=== PATIENT | male | born 1970 | race Caucasian/White ===

== ENCOUNTER 2022-08-12 16:01 | Inpatient (IN) | payer BC ==
[~2022-08-12] VITALS: Ht 185.4 cm; Wt 136.1 kg
[2022-08-12] MEDS ORDERED: Vancomycin IV 1 GM in SODIUM CHLORIDE 0.9% 250ML 250 ML IV SCH (16:15)
[2022-08-12 17:05] LABS: BASOPHILS % 0.2 % (0.0-1.0); HEMATOCRIT 43.1 % (38.2-49.6); HEMOGLOBIN 13.9 g/dL (14.0-18.0); LYMPHOCYTES # (AUTO) 0.7 (1.0-3.2); LYMPHOCYTES % 5.3 % (18.0-39.1); MEAN CORPUSCULAR HEMOGLOBIN 32.3 pg (28-32); MEAN CORPUSCULAR HGB CONC 32.3 g/dL (31-35); MONOCYTES # (AUTO) 0.8 (0.2-0.8); MONOCYTES % 6.5 % (4.4-11.3); NEUTROPHILS # (AUTO) 10.7 (2.1-6.9); NEUTROPHILS % 85.9 % (38.7-80.0); PLATELET COUNT 256 x10e3/uL (140-360); RED BLOOD COUNT 4.31 x10e6/uL (4.3-5.7); RED CELL DISTRIBUTION WIDTH 12.6 % (11.7-14.4)
[2022-08-12 17:24] LABS: ALBUMIN 2.6 g/dL (3.5-5.0); ALBUMIN/GLOBULIN RATIO 0.6 (0.8-2.0); ANION GAP 16.7 mmol/L (8-16); CALCIUM 9.1 mg/dL (8.4-10.2); CREATININE, SERUM 1.37 mg/dL (0.72-1.25); POTASSIUM 4.7 mmol/L (3.5-5.1)
[2022-08-12] MEDS ORDERED: SODIUM CHLORIDE 0.9% 1000ML 1,000 ML IV ONE (18:15)
[2022-08-12 20:00] VITALS: BP 98/74
[2022-08-12 20:34] VITALS: BP 109/56
[2022-08-12] MEDS ORDERED: INFLUENZA VIRUS VAC SPLIT INJ 0.5 ML SYR IM SCH (22:40)
[2022-08-13] VITALS (7 sets, daily range): BP systolic 108–135; BP diastolic 50–92
[2022-08-13] MEDS ORDERED: METFORMIN HCL500 MG PO (00:31)
[2022-08-13] MEDS ORDERED: FLOMAX0.4 MG PO (00:34)
[2022-08-13] MEDS ORDERED: LISINOPRIL2.5 MG PO (00:34)
[2022-08-13] MEDS ORDERED: POTASSIUM CHLORIDE 20 MEQ TAB CR PO PRN (01:15)
[2022-08-13] MEDS ORDERED: ONDANSETRON HCL INJ 2MG/ML 2ML 2 MG/ML VIAL IV PRN (01:15)
[2022-08-13] MEDS ORDERED: DEXTROSE 50% SYRINGE 50 ML IV PRN ×2 (01:15→13:30)
[2022-08-13] MEDS ORDERED: DIPHENHYDRAMINE HCL 25 MG CAP PO PRN (01:15)
[2022-08-13] MEDS ORDERED: SIMETHICONE 80 MG CHEW PO PRN (01:15)
[2022-08-13] MEDS ORDERED: MELATONIN 5 MG TABLET PO PRN (01:15)
[2022-08-13] MEDS ORDERED: ACETAMINOPHEN 325 MG TAB PO PRN (01:15)
[2022-08-13] MEDS ORDERED: DOCUSATE SODIUM 100 MG CAP PO PRN (01:15)
[2022-08-13] MEDS ORDERED: LIDOCAINE 4% PATCH TP PRN (01:15)
[2022-08-13] MEDS ORDERED: HYDRALAZINE HCL 20 MG/ML VIAL IV PRN (01:15)
[2022-08-13] MEDS ORDERED: ALBUTEROL/IPRATROPIUM 3 ML NEB NEB PRN (01:15)
[2022-08-13] MEDS ORDERED: BENZONATATE 100 MG CAP PO PRN (01:15)
[2022-08-13] MEDS ORDERED: SODIUM CHLORIDE 0.9% 250ML 250 ML ONE (01:59)
[2022-08-13] MEDS: Vancomycin IV 1 GM in SODIUM CHLORIDE 0.9% 250ML 250 ML IV SCH ×2 (05:36→16:57)
[2022-08-13] MEDS: TAMSULOSIN HCL 0.4 MG CAP PO SCH (09:14)
[2022-08-13] MEDS: PANTOPRAZOLE SOD 40 MG TABEC PO SCH (09:14)
[2022-08-13] MEDS: ENOXAPARIN SOD INJ 120 MG/0.8 ML SYR SC SCH ×2 (11:45→21:17)
[2022-08-13] MEDS: FOLIC ACID 1 MG TAB PO SCH (11:46)
[2022-08-13] MEDS: ASPIRIN 81 MG ENTERIC COATED PO SCH (11:46)
[2022-08-13] MEDS: MULTIVITAMINS/MINERALS TAB PO SCH (11:49)
[2022-08-13] MEDS: THIAMINE HCL 100 MG TAB PO SCH (11:49)
[2022-08-13 12:59] LABS: CHOL/HDL RATIO 4.8 (3.9-4.7)
[2022-08-13 14:37] LABS: CLARITY,URINE SL CLOUDY (CLEAR); COLOR,URINE YELLOW (YELLOW); KETONES,URINE TRACE (NEGATIVE); LEUKOCYTE ESTERASE ,URINE NEGATIVE (NEGATIVE); NITRITE,URINE NEGATIVE (NEGATIVE); PROTEIN,URINE DIPSTICK 1+ (NEGATIVE)
[2022-08-13 14:38] LABS: URINE UROBILINOGEN >=8 mg/dL (0.2 - 1)
[2022-08-13 15:04] LABS: BACTERIA,URINE MODERATE /HPF; EPITHELIAL CELLS,URINE MODERATE /LPF
[2022-08-13] MEDS ORDERED: INSULIN LISPRO 100 UNIT/1 ML 3ML VIAL SQ SCH (16:30)
[2022-08-13] MEDS ORDERED: ENOXAPARIN SOD INJ 40 MG/0.4 ML SYR SC SCH (17:00)
[2022-08-13] MEDS: ATORVASTATIN 20 MG TAB PO SCH (21:17)
[2022-08-14] VITALS (8 sets, daily range): BP systolic 120–136; BP diastolic 63–80
[2022-08-14] MEDS: Vancomycin IV 1 GM in SODIUM CHLORIDE 0.9% 250ML 250 ML IV SCH ×2 (06:43→18:53)
[2022-08-14 06:53] LABS: BASOPHILS % 0.2 % (0.0-1.0); EOSINOPHILS # (AUTO) 0.3 (0.0-0.4); EOSINOPHILS % 2.8 % (0.0-6.0); HEMATOCRIT 36.4 % (38.2-49.6); HEMOGLOBIN 11.5 g/dL (14.0-18.0); LYMPHOCYTES # (AUTO) 0.5 (1.0-3.2); LYMPHOCYTES % 4.9 % (18.0-39.1); MEAN CORPUSCULAR HEMOGLOBIN 32.3 pg (28-32); MEAN CORPUSCULAR HGB CONC 31.6 g/dL (31-35); MEAN CORPUSCULAR VOLUME 102.2 fL (81-99); MONOCYTES # (AUTO) 0.5 (0.2-0.8); MONOCYTES % 5.6 % (4.4-11.3); NEUTROPHILS # (AUTO) 8.2 (2.1-6.9); NEUTROPHILS % 85.2 % (38.7-80.0); PLATELET COUNT 193 x10e3/uL (140-360); RED BLOOD COUNT 3.56 x10e6/uL (4.3-5.7); RED CELL DISTRIBUTION WIDTH 12.6 % (11.7-14.4)
[2022-08-14 08:41] LABS: ANION GAP 14.6 mmol/L (8-16); CHOL/HDL RATIO 5.1 (3.9-4.7); CREATININE, SERUM 0.8 mg/dL (0.72-1.25); MAGNESIUM 1.6 MG/DL (1.3-2.1); POTASSIUM 4.6 mmol/L (3.5-5.1)
[2022-08-14 09:01] LABS: THYROID STIMULATING HORMONE 0.509 uIU/mL (0.350-4.940)
[2022-08-14] MEDS: FOLIC ACID 1 MG TAB PO SCH (10:11)
[2022-08-14] MEDS: THIAMINE HCL 100 MG TAB PO SCH (10:11)
[2022-08-14] MEDS: ASPIRIN 81 MG ENTERIC COATED PO SCH (10:11)
[2022-08-14] MEDS: PANTOPRAZOLE SOD 40 MG TABEC PO SCH (10:11)
[2022-08-14] MEDS: MULTIVITAMINS/MINERALS TAB PO SCH (10:11)
[2022-08-14] MEDS: TAMSULOSIN HCL 0.4 MG CAP PO SCH (10:11)
[2022-08-14] MEDS ORDERED: IOPAMIDOL 370 MG/ML 100 ML INFUS..BTL INJ ONE (11:13)
[2022-08-14] MEDS: ENOXAPARIN SOD INJ 40 MG/0.4 ML SYR SC SCH (17:27)
[2022-08-14] MEDS: ATORVASTATIN 20 MG TAB PO SCH (21:56)
[2022-08-15] VITALS (8 sets, daily range): BP systolic 111–139; BP diastolic 55–102
[2022-08-15 06:15] LABS: BASOPHILS % 0.2 % (0.0-1.0); EOSINOPHILS % 0.3 % (0.0-6.0); HEMATOCRIT 40.6 % (38.2-49.6); HEMOGLOBIN 12.9 g/dL (14.0-18.0); LYMPHOCYTES # (AUTO) 0.8 (1.0-3.2); LYMPHOCYTES % 8.3 % (18.0-39.1); MEAN CORPUSCULAR HEMOGLOBIN 32.3 pg (28-32); MEAN CORPUSCULAR HGB CONC 31.8 g/dL (31-35); MEAN CORPUSCULAR VOLUME 101.5 fL (81-99); MONOCYTES # (AUTO) 0.9 (0.2-0.8); MONOCYTES % 9.2 % (4.4-11.3); NEUTROPHILS # (AUTO) 7.7 (2.1-6.9); NEUTROPHILS % 81.4 % (38.7-80.0); PLATELET COUNT 204 x10e3/uL (140-360); RED CELL DISTRIBUTION WIDTH 12.6 % (11.7-14.4)
[2022-08-15] MEDS: Vancomycin IV 1 GM in SODIUM CHLORIDE 0.9% 250ML 250 ML IV SCH ×2 (06:15→18:28)
[2022-08-15 06:41] LABS: ANION GAP 14.1 mmol/L (8-16); CALCIUM 9.3 mg/dL (8.4-10.2); CREATININE, SERUM 0.73 mg/dL (0.72-1.25); POTASSIUM 4.1 mmol/L (3.5-5.1)
[2022-08-15] MEDS ORDERED: FAMOTIDINE 20 MG/2 ML VIAL IV ONE (06:46)
[2022-08-15] MEDS ORDERED: Vancomycin IV 1 GM VIAL ONE (06:51)
[2022-08-15] MEDS ORDERED: BUPIVACAINE HCL 0.5% INJ 30 ML VIAL INJ ONE (06:51)
[2022-08-15] MEDS ORDERED: NEOSTIGMINE 1 MG/ML 10ML VIAL ONE (06:52)
[2022-08-15] MEDS: THIAMINE HCL 100 MG TAB PO SCH (09:26)
[2022-08-15] MEDS: FOLIC ACID 1 MG TAB PO SCH (09:26)
[2022-08-15] MEDS: MULTIVITAMINS/MINERALS TAB PO SCH (09:26)
[2022-08-15] MEDS: PANTOPRAZOLE SOD 40 MG TABEC PO SCH (09:26)
[2022-08-15] MEDS: TAMSULOSIN HCL 0.4 MG CAP PO SCH (09:26)
[2022-08-15] MEDS: ASPIRIN 81 MG ENTERIC COATED PO SCH (09:26)
[2022-08-15] MEDS ORDERED: B COMPLEX1 EACH PO (09:33)
[2022-08-15] MEDS ORDERED: FOLIC ACID0.4 MG PO (09:33)
[2022-08-15] MEDS ORDERED: SODIUM CHLORIDE 0.9% 250ML 250 ML ONE (09:38)
[2022-08-15] MEDS ORDERED: SUCCINYLCHOLINE CHLORIDE 20 MG/ML 10ML VIAL ONE (12:07)
[2022-08-15] MEDS ORDERED: EPHEDRINE SULFATE INJ 50 MG/ML VIAL ONE (12:07)
[2022-08-15] MEDS ORDERED: LIDOCAINE HCL 2% LOCAL INJ 5 ML SDV VIAL INJ ONE (12:07)
[2022-08-15] MEDS ORDERED: PHENYLEPHRINE HCL 1% 10 MG/ML VIAL ONE (12:07)
[2022-08-15] MEDS ORDERED: SEVOFLURANE INHAL SOLN 250 ML PEN BTL ONE (12:07)
[2022-08-15] MEDS ORDERED: PROPOFOL IV EMULSION 10 MG/ML 20 ML VIAL ONE (12:07)
[2022-08-15] MEDS ORDERED: LIDOCAINE HCL 2% JELLY 5 ML TUBE ONE (12:07)
[2022-08-15] MEDS ORDERED: KETOROLAC TROMETHAMINE 30 MG/ML VIAL ONE (12:07)
[2022-08-15] MEDS ORDERED: POVIDONE IODINE 0.05% 0.05 % ML PO ONE (12:07)
[2022-08-15] MEDS ORDERED: ONDANSETRON HCL INJ 2MG/ML 2ML 2 MG/ML VIAL ONE (12:07)
[2022-08-15] MEDS ORDERED: FENTANYL CITRATE/PF 100MCG/2 ML INJ ONE (12:27)
[2022-08-15] MEDS: ATORVASTATIN 40 MG TAB PO SCH (21:11)
[2022-08-16] VITALS (11 sets, daily range): BP systolic 126–158; BP diastolic 70–102
[2022-08-16] MEDS: Vancomycin IV 1 GM in SODIUM CHLORIDE 0.9% 250ML 250 ML IV SCH ×2 (06:28→17:27)
[2022-08-16 06:48] LABS: BASOPHILS % 0.3 % (0.0-1.0); EOSINOPHILS # (AUTO) 0.1 (0.0-0.4); EOSINOPHILS % 1.1 % (0.0-6.0); HEMATOCRIT 39.8 % (38.2-49.6); HEMOGLOBIN 12.2 g/dL (14.0-18.0); LYMPHOCYTES # (AUTO) 0.8 (1.0-3.2); LYMPHOCYTES % 11.6 % (18.0-39.1); MEAN CORPUSCULAR HGB CONC 30.7 g/dL (31-35); MEAN CORPUSCULAR VOLUME 104.5 fL (81-99); MONOCYTES # (AUTO) 0.6 (0.2-0.8); MONOCYTES % 8.7 % (4.4-11.3); NEUTROPHILS # (AUTO) 5.5 (2.1-6.9); NEUTROPHILS % 77.6 % (38.7-80.0); PLATELET COUNT 216 x10e3/uL (140-360); RED BLOOD COUNT 3.81 x10e6/uL (4.3-5.7); RED CELL DISTRIBUTION WIDTH 12.5 % (11.7-14.4)
[2022-08-16 07:07] LABS: ANION GAP 13.6 mmol/L (8-16); CALCIUM 9.3 mg/dL (8.4-10.2); CREATININE, SERUM 0.76 mg/dL (0.72-1.25); POTASSIUM 4.6 mmol/L (3.5-5.1)
[2022-08-16] MEDS: FOLIC ACID 1 MG TAB PO SCH (07:34)
[2022-08-16] MEDS: THIAMINE HCL 100 MG TAB PO SCH (07:34)
[2022-08-16] MEDS: TAMSULOSIN HCL 0.4 MG CAP PO SCH (07:35)
[2022-08-16] MEDS: MULTIVITAMINS/MINERALS TAB PO SCH (07:35)
[2022-08-16] MEDS: ASPIRIN 81 MG ENTERIC COATED PO SCH (07:35)
[2022-08-16] MEDS: PANTOPRAZOLE SOD 40 MG TABEC PO SCH (07:35)
[2022-08-16] MEDS ORDERED: HYDROCODONE/APAP 5MG-325MG TAB PO PRN (13:30)
[2022-08-16] MEDS: ENOXAPARIN SOD INJ 40 MG/0.4 ML SYR SC SCH (17:27)
[2022-08-16] MEDS: ALBUTEROL/IPRATROPIUM 3 ML NEB NEB SCH (19:26)
[2022-08-16] MEDS: ATORVASTATIN 40 MG TAB PO SCH (21:30)
[2022-08-16 21:46] LABS: ABG HCO3 36 mmol/L (22-26); ABG PCO2 65 mmHg (35-45); ABG PH 7.35 (7.35-7.45); ABG PO2 73 mmHg (80-105)
[2022-08-16 21:47] LABS: ABG TCO2 38
[2022-08-17] VITALS (10 sets, daily range): BP systolic 147–206; BP diastolic 72–102
[2022-08-17] MEDS: ALBUTEROL/IPRATROPIUM 3 ML NEB NEB SCH ×4 (01:05→19:30)
[2022-08-17] MEDS: Vancomycin IV 1 GM in SODIUM CHLORIDE 0.9% 250ML 250 ML IV SCH ×2 (06:21→17:05)
[2022-08-17] MEDS: TAMSULOSIN HCL 0.4 MG CAP PO SCH (08:23)
[2022-08-17] MEDS: THIAMINE HCL 100 MG TAB PO SCH (08:23)
[2022-08-17] MEDS: FOLIC ACID 1 MG TAB PO SCH (08:23)
[2022-08-17] MEDS: MULTIVITAMINS/MINERALS TAB PO SCH (08:24)
[2022-08-17] MEDS: ASPIRIN 81 MG ENTERIC COATED PO SCH (08:24)
[2022-08-17] MEDS: PANTOPRAZOLE SOD 40 MG TABEC PO SCH (08:24)
[2022-08-17] MEDS: ENOXAPARIN SOD INJ 40 MG/0.4 ML SYR SC SCH (17:02)
[2022-08-17] MEDS: ATORVASTATIN 40 MG TAB PO SCH (20:24)
[2022-08-18] VITALS (7 sets, daily range): BP systolic 161–175; BP diastolic 87–99
[2022-08-18] MEDS: ALBUTEROL/IPRATROPIUM 3 ML NEB NEB SCH ×3 (03:14→13:22)
[2022-08-18] MEDS: Vancomycin IV 1 GM in SODIUM CHLORIDE 0.9% 250ML 250 ML IV SCH (06:01)
[2022-08-18] MEDS ORDERED: SODIUM CHLORIDE 0.9% 250ML 250 ML ONE (06:07)
[2022-08-18] MEDS: PANTOPRAZOLE SOD 40 MG TABEC PO SCH (09:05)
[2022-08-18] MEDS: TAMSULOSIN HCL 0.4 MG CAP PO SCH (09:06)
[2022-08-18] MEDS: FOLIC ACID 1 MG TAB PO SCH (09:06)
[2022-08-18] MEDS: MULTIVITAMINS/MINERALS TAB PO SCH (09:06)
[2022-08-18] MEDS: ASPIRIN 81 MG ENTERIC COATED PO SCH (09:06)
[2022-08-18] MEDS: THIAMINE HCL 100 MG TAB PO SCH (09:07)
[2022-08-18] MEDS ORDERED: DAPTOMYCIN500 MG IV (12:22)
[2022-08-18] MEDS ORDERED: ASPIRIN EC81 MG PO (12:22)
[2022-08-18] MEDS: ENOXAPARIN SOD INJ 40 MG/0.4 ML SYR SC SCH (17:13)
[2022-08-18] MEDS ORDERED: ONDANSETRON HCL 4 MG ORAL DISINTEGRATING TAB PO PRN (17:30)
== END 2022-08-18 18:19 | DRG 628 ==
LOC: ER 16:10 → ERHOLD 16:12 → ER 16:19 → MED/SURG3 19:41 → ICU 08-16 22:40 → MED/SURG2 08-17 12:26
PROVIDERS: ADMIT Internal Medicine; ATTEND Internal Medicine
PROC: 0QBM0ZZ Excision of Left Tarsal, Open Approach (ICD-10-PCS; 2022-08-15)
PROC: 02HV33Z Insertion of Infusion Device into Superior Vena Cava, Percutaneous Approach (ICD-10-PCS; 2022-08-15)
PROC: 5A09357 Assistance with Respiratory Ventilation, Less than 24 Consecutive Hours, Continuous Positive Airway Pressure (ICD-10-PCS; principal; 2022-08-16)
DX: E11.69 Type 2 diabetes mellitus with other specified complication (principal); A48.0 Gas gangrene; J96.21 Acute and chronic respiratory failure with hypoxia; J96.22 Acute and chronic respiratory failure with hypercapnia; E11.52 Type 2 diabetes mellitus with diabetic peripheral angiopathy with gangrene; L97.424 Non-pressure chronic ulcer of left heel and midfoot with necrosis of bone; M86.8X7 Other osteomyelitis, ankle and foot; L03.116 Cellulitis of left lower limb; E78.5 Hyperlipidemia, unspecified; E11.621 Type 2 diabetes mellitus with foot ulcer; Z79.4 Long term (current) use of insulin; E66.01 Morbid (severe) obesity due to excess calories; Z68.39 Body mass index [BMI] 39.0-39.9, adult; G47.33 Obstructive sleep apnea (adult) (pediatric); F10.20 Alcohol dependence, uncomplicated; I87.2 Venous insufficiency (chronic) (peripheral); E11.628 Type 2 diabetes mellitus with other skin complications; Z91.14 Patient's other noncompliance with medication regimen; Z91.198 Patient's noncompliance with other medical treatment and regimen for other reason; F17.200 Nicotine dependence, unspecified, uncomplicated; Z20.822 Contact with and (suspected) exposure to COVID-19
CPT/HCPCS: 36415; 36569; 36600; 71045; 71250; 74470; 75635; 80048; 80053; 80061; 80202; 81001; 82607; 82805; 82948; 83036; 83605; 83735; 84443; 85025; 85651; 86140; 87040; 87071; 87075; 87205; 93005; 93306; 93925; 93970; 94660; 94799; 97605; 99284; C1713; J0330; J0360; J1650; J1885; J2001; J2370; J2405; J2543; J2710; J3010; J3370; J3411; J7030; J7050; Q9967

== ENCOUNTER → 2022-10-12 | Outpatient (CLI) | payer BC ==
[~2022-10-12] MED LIST: ASPIRIN EC81 MG PO; B COMPLEX1 EACH PO; DAPTOMYCIN500 MG IV; FLOMAX0.4 MG PO; FOLIC ACID0.4 MG PO; LISINOPRIL2.5 MG PO; METFORMIN HCL500 MG PO; NIFEDIPINE ER30 M1 PO; TRAZODONE HCL50 MG PO
== END ==
LOC: WCC 10:29
PROVIDERS: ATTEND Podiatrist Foot & Ankle Surgery
DX: E11.621 Type 2 diabetes mellitus with foot ulcer (principal); E11.622 Type 2 diabetes mellitus with other skin ulcer; E11.69 Type 2 diabetes mellitus with other specified complication; M86.172 Other acute osteomyelitis, left ankle and foot; M86.672 Other chronic osteomyelitis, left ankle and foot; L97.426 Non-pressure chronic ulcer of left heel and midfoot with bone involvement without evidence of necrosis; L97.823 Non-pressure chronic ulcer of other part of left lower leg with necrosis of muscle; I10 Essential (primary) hypertension; G47.39 Other sleep apnea; G90.09 Other idiopathic peripheral autonomic neuropathy; E66.01 Morbid (severe) obesity due to excess calories; F32.9 Major depressive disorder, single episode, unspecified

== ENCOUNTER → 2022-10-13 | Outpatient (CLI) | payer BC | LOC: WCC 11:41 | PROVIDERS: ATTEND Podiatrist Foot & Ankle Surgery | DX: E11.621 Type 2 diabetes mellitus with foot ulcer (principal); E11.622 Type 2 diabetes mellitus with other skin ulcer; E11.69 Type 2 diabetes mellitus with other specified complication; M86.172 Other acute osteomyelitis, left ankle and foot; M86.672 Other chronic osteomyelitis, left ankle and foot; L97.426 Non-pressure chronic ulcer of left heel and midfoot with bone involvement without evidence of necrosis; L97.823 Non-pressure chronic ulcer of other part of left lower leg with necrosis of muscle; I10 Essential (primary) hypertension; G47.39 Other sleep apnea; G90.09 Other idiopathic peripheral autonomic neuropathy; E66.01 Morbid (severe) obesity due to excess calories; F32.9 Major depressive disorder, single episode, unspecified ==

== ENCOUNTER → 2022-10-14 | Outpatient (CLI) | payer BC ==
[~2022-10-14] MED LIST changes: +VITAMIN D310 MCG PEG
== END ==
LOC: WCC 14:09
PROVIDERS: ATTEND Podiatrist Foot & Ankle Surgery
DX: E11.621 Type 2 diabetes mellitus with foot ulcer (principal); E11.622 Type 2 diabetes mellitus with other skin ulcer; E11.69 Type 2 diabetes mellitus with other specified complication; M86.172 Other acute osteomyelitis, left ankle and foot; M86.672 Other chronic osteomyelitis, left ankle and foot; L97.426 Non-pressure chronic ulcer of left heel and midfoot with bone involvement without evidence of necrosis; L97.823 Non-pressure chronic ulcer of other part of left lower leg with necrosis of muscle; I10 Essential (primary) hypertension; G47.39 Other sleep apnea; G90.09 Other idiopathic peripheral autonomic neuropathy; F32.9 Major depressive disorder, single episode, unspecified; E66.01 Morbid (severe) obesity due to excess calories

== ENCOUNTER → 2022-10-17 | Outpatient (CLI) | payer BC | LOC: WCC 12:54 | PROVIDERS: ATTEND Podiatrist Foot & Ankle Surgery | DX: E11.621 Type 2 diabetes mellitus with foot ulcer (principal); E11.622 Type 2 diabetes mellitus with other skin ulcer; E11.69 Type 2 diabetes mellitus with other specified complication; M86.172 Other acute osteomyelitis, left ankle and foot; M86.672 Other chronic osteomyelitis, left ankle and foot; G90.09 Other idiopathic peripheral autonomic neuropathy; L97.426 Non-pressure chronic ulcer of left heel and midfoot with bone involvement without evidence of necrosis; L97.823 Non-pressure chronic ulcer of other part of left lower leg with necrosis of muscle; I10 Essential (primary) hypertension; G47.39 Other sleep apnea; F32.9 Major depressive disorder, single episode, unspecified; E66.01 Morbid (severe) obesity due to excess calories ==

== ENCOUNTER → 2022-10-18 | Outpatient (CLI) | payer BC | LOC: WCC 14:21 | PROVIDERS: ATTEND Podiatrist Foot & Ankle Surgery | DX: E11.621 Type 2 diabetes mellitus with foot ulcer (principal); E11.622 Type 2 diabetes mellitus with other skin ulcer; E11.69 Type 2 diabetes mellitus with other specified complication; M86.172 Other acute osteomyelitis, left ankle and foot; M86.672 Other chronic osteomyelitis, left ankle and foot; L97.426 Non-pressure chronic ulcer of left heel and midfoot with bone involvement without evidence of necrosis; L97.823 Non-pressure chronic ulcer of other part of left lower leg with necrosis of muscle; I10 Essential (primary) hypertension; G90.09 Other idiopathic peripheral autonomic neuropathy; G47.39 Other sleep apnea; F32.9 Major depressive disorder, single episode, unspecified; E66.01 Morbid (severe) obesity due to excess calories | CPT/HCPCS: 11042; 99213; G0277 ==

== ENCOUNTER → 2022-10-19 | Outpatient (CLI) | payer BC | LOC: WCC 13:18 | PROVIDERS: ATTEND Podiatrist Foot & Ankle Surgery | DX: E11.621 Type 2 diabetes mellitus with foot ulcer (principal); E11.622 Type 2 diabetes mellitus with other skin ulcer; E11.69 Type 2 diabetes mellitus with other specified complication; M86.172 Other acute osteomyelitis, left ankle and foot; M86.672 Other chronic osteomyelitis, left ankle and foot; L97.426 Non-pressure chronic ulcer of left heel and midfoot with bone involvement without evidence of necrosis; L97.823 Non-pressure chronic ulcer of other part of left lower leg with necrosis of muscle; I10 Essential (primary) hypertension; G90.09 Other idiopathic peripheral autonomic neuropathy; F32.9 Major depressive disorder, single episode, unspecified; E66.01 Morbid (severe) obesity due to excess calories ==

== ENCOUNTER → 2022-10-20 | Outpatient (CLI) | payer BC | LOC: WCC 13:10 | PROVIDERS: ATTEND Podiatrist Foot & Ankle Surgery | DX: E11.621 Type 2 diabetes mellitus with foot ulcer (principal); E11.622 Type 2 diabetes mellitus with other skin ulcer; E11.69 Type 2 diabetes mellitus with other specified complication; M86.172 Other acute osteomyelitis, left ankle and foot; M86.672 Other chronic osteomyelitis, left ankle and foot; L97.823 Non-pressure chronic ulcer of other part of left lower leg with necrosis of muscle; L97.426 Non-pressure chronic ulcer of left heel and midfoot with bone involvement without evidence of necrosis; I10 Essential (primary) hypertension; G47.39 Other sleep apnea; G90.09 Other idiopathic peripheral autonomic neuropathy; F32.9 Major depressive disorder, single episode, unspecified; E66.01 Morbid (severe) obesity due to excess calories | CPT/HCPCS: 99213; G0277 ==

== ENCOUNTER → 2022-10-24 | Outpatient (CLI) | payer BC | LOC: WCC 11:53 | PROVIDERS: ATTEND Podiatrist Foot & Ankle Surgery | DX: E11.621 Type 2 diabetes mellitus with foot ulcer (principal); E11.622 Type 2 diabetes mellitus with other skin ulcer; E11.69 Type 2 diabetes mellitus with other specified complication; M86.172 Other acute osteomyelitis, left ankle and foot; M86.672 Other chronic osteomyelitis, left ankle and foot; L97.426 Non-pressure chronic ulcer of left heel and midfoot with bone involvement without evidence of necrosis; L97.823 Non-pressure chronic ulcer of other part of left lower leg with necrosis of muscle; I10 Essential (primary) hypertension; G47.39 Other sleep apnea; G90.09 Other idiopathic peripheral autonomic neuropathy; F32.9 Major depressive disorder, single episode, unspecified; E66.01 Morbid (severe) obesity due to excess calories | CPT/HCPCS: 36415; 82948; G0277 ==

== ENCOUNTER → 2022-10-25 | Day surgery (SDC) | payer BC ==
[2022-10-21 10:56] LABS: ANION GAP 16.4 mmol/L (8-16); CALCIUM 9.6 mg/dL (8.4-10.2); CREATININE, SERUM 1.16 mg/dL (0.72-1.25); POTASSIUM 4.4 mmol/L (3.5-5.1)
[~2022-10-25] MED LIST changes: +BUPIVACAINE HCL 0.5% INJ 30 ML VIAL INJ ONE; +DEXAMETHASONE SOD PHOS INJ 4 MG/ML SDV ONE; +FENTANYL CITRATE/PF 100MCG/2 ML INJ ONE; +KETAMINE HCL INJ 50 MG/ML 10 ML VIAL ONE; +KETOROLAC TROMETHAMINE 30 MG/ML VIAL ONE; +LIDOCAINE HCL 2% LOCAL INJ 5 ML SDV VIAL INJ ONE; +MIDAZOLAM HCL 2 MG/2 ML VIAL ONE; +MUPIROCIN 2% OINT 22 GM TUBE ONE; +ONDANSETRON HCL INJ 2MG/ML 2ML 2 MG/ML VIAL ONE; +POVIDONE IODINE 0.05% 0.05 % ML PO ONE; +PROPOFOL IV EMULSION 10 MG/ML 20 ML VIAL ONE
[2022-10-25 13:40] VITALS: BP 156/90
== END | disposition home or self-care (01) ==
LOC: OR 09:20
PROVIDERS: ATTEND Podiatrist Foot & Ankle Surgery
DX: E11.69 Type 2 diabetes mellitus with other specified complication (principal); M86.9 Osteomyelitis, unspecified; E11.621 Type 2 diabetes mellitus with foot ulcer; L97.426 Non-pressure chronic ulcer of left heel and midfoot with bone involvement without evidence of necrosis; E11.40 Type 2 diabetes mellitus with diabetic neuropathy, unspecified; G47.33 Obstructive sleep apnea (adult) (pediatric); I10 Essential (primary) hypertension; N40.0 Benign prostatic hyperplasia without lower urinary tract symptoms; Z01.810 Encounter for preprocedural cardiovascular examination; Z01.812 Encounter for preprocedural laboratory examination; Z79.84 Long term (current) use of oral hypoglycemic drugs; Z79.899 Other long term (current) drug therapy; Z87.442 Personal history of urinary calculi
CPT/HCPCS: 15004; 15275; 36415; 80048; 87071; 87075; 87186; 87205; 93005; 97605; 99252; J0690; J1100; J1885; J2001; J2250; J2405; J2704; J3010; Q4104

== ENCOUNTER → 2022-10-27 | Outpatient (CLI) | payer BC ==
[~2022-10-27] MED LIST changes: -BUPIVACAINE HCL 0.5% INJ 30 ML VIAL INJ ONE; -DEXAMETHASONE SOD PHOS INJ 4 MG/ML SDV ONE; -FENTANYL CITRATE/PF 100MCG/2 ML INJ ONE; -KETAMINE HCL INJ 50 MG/ML 10 ML VIAL ONE; -KETOROLAC TROMETHAMINE 30 MG/ML VIAL ONE; -LIDOCAINE HCL 2% LOCAL INJ 5 ML SDV VIAL INJ ONE; -MIDAZOLAM HCL 2 MG/2 ML VIAL ONE; -MUPIROCIN 2% OINT 22 GM TUBE ONE; -ONDANSETRON HCL INJ 2MG/ML 2ML 2 MG/ML VIAL ONE; -POVIDONE IODINE 0.05% 0.05 % ML PO ONE; -PROPOFOL IV EMULSION 10 MG/ML 20 ML VIAL ONE
== END ==
LOC: WCC 14:12
PROVIDERS: ATTEND Podiatrist Foot & Ankle Surgery
DX: E11.622 Type 2 diabetes mellitus with other skin ulcer (principal); E11.69 Type 2 diabetes mellitus with other specified complication; M86.172 Other acute osteomyelitis, left ankle and foot; M86.672 Other chronic osteomyelitis, left ankle and foot; E11.621 Type 2 diabetes mellitus with foot ulcer; L97.426 Non-pressure chronic ulcer of left heel and midfoot with bone involvement without evidence of necrosis; L97.823 Non-pressure chronic ulcer of other part of left lower leg with necrosis of muscle; G90.09 Other idiopathic peripheral autonomic neuropathy; G47.39 Other sleep apnea; F32.9 Major depressive disorder, single episode, unspecified; E66.01 Morbid (severe) obesity due to excess calories

== ENCOUNTER → 2022-10-28 | Outpatient (CLI) | payer BC | LOC: WCC 13:05 | PROVIDERS: ATTEND Podiatrist Foot & Ankle Surgery | DX: E11.621 Type 2 diabetes mellitus with foot ulcer (principal); E11.622 Type 2 diabetes mellitus with other skin ulcer; E11.69 Type 2 diabetes mellitus with other specified complication; M86.172 Other acute osteomyelitis, left ankle and foot; M86.672 Other chronic osteomyelitis, left ankle and foot; L97.426 Non-pressure chronic ulcer of left heel and midfoot with bone involvement without evidence of necrosis; L97.823 Non-pressure chronic ulcer of other part of left lower leg with necrosis of muscle; I10 Essential (primary) hypertension; G90.09 Other idiopathic peripheral autonomic neuropathy; G47.39 Other sleep apnea; F32.9 Major depressive disorder, single episode, unspecified; E66.01 Morbid (severe) obesity due to excess calories | CPT/HCPCS: 97605; 99213; G0277 ==

== ENCOUNTER → 2022-10-31 | Outpatient (CLI) | payer BC | LOC: WCC 13:04 | PROVIDERS: ATTEND Podiatrist Foot & Ankle Surgery | DX: E11.621 Type 2 diabetes mellitus with foot ulcer (principal); E11.622 Type 2 diabetes mellitus with other skin ulcer; E11.69 Type 2 diabetes mellitus with other specified complication; M86.172 Other acute osteomyelitis, left ankle and foot; M86.672 Other chronic osteomyelitis, left ankle and foot; L97.426 Non-pressure chronic ulcer of left heel and midfoot with bone involvement without evidence of necrosis; L97.823 Non-pressure chronic ulcer of other part of left lower leg with necrosis of muscle; I10 Essential (primary) hypertension; G47.39 Other sleep apnea; G90.09 Other idiopathic peripheral autonomic neuropathy; F32.9 Major depressive disorder, single episode, unspecified; E66.01 Morbid (severe) obesity due to excess calories ==

== ENCOUNTER → 2022-11-01 | Outpatient (CLI) | payer BC | LOC: WCC 12:21 | PROVIDERS: ATTEND Podiatrist Foot & Ankle Surgery | DX: E11.621 Type 2 diabetes mellitus with foot ulcer (principal); E11.622 Type 2 diabetes mellitus with other skin ulcer; E11.69 Type 2 diabetes mellitus with other specified complication; M86.172 Other acute osteomyelitis, left ankle and foot; M86.672 Other chronic osteomyelitis, left ankle and foot; L97.426 Non-pressure chronic ulcer of left heel and midfoot with bone involvement without evidence of necrosis; L97.823 Non-pressure chronic ulcer of other part of left lower leg with necrosis of muscle; I10 Essential (primary) hypertension; G47.39 Other sleep apnea; G90.09 Other idiopathic peripheral autonomic neuropathy; F32.9 Major depressive disorder, single episode, unspecified; E66.01 Morbid (severe) obesity due to excess calories | CPT/HCPCS: 99213; G0277 ==

== ENCOUNTER → 2022-11-02 | Outpatient (CLI) | payer BC | LOC: WCC 14:00 | PROVIDERS: ATTEND Podiatrist Foot & Ankle Surgery | DX: E11.621 Type 2 diabetes mellitus with foot ulcer (principal); E11.622 Type 2 diabetes mellitus with other skin ulcer; E11.69 Type 2 diabetes mellitus with other specified complication; M86.172 Other acute osteomyelitis, left ankle and foot; M86.672 Other chronic osteomyelitis, left ankle and foot; L97.823 Non-pressure chronic ulcer of other part of left lower leg with necrosis of muscle; I10 Essential (primary) hypertension; G47.39 Other sleep apnea; G90.09 Other idiopathic peripheral autonomic neuropathy; F32.9 Major depressive disorder, single episode, unspecified; E66.01 Morbid (severe) obesity due to excess calories | CPT/HCPCS: 36415; 82948; 99213; G0277 ==

== ENCOUNTER → 2022-11-04 | Outpatient (CLI) | payer BC | LOC: WCC 10:59 | PROVIDERS: ATTEND Podiatrist Foot & Ankle Surgery | DX: E11.621 Type 2 diabetes mellitus with foot ulcer (principal); E11.622 Type 2 diabetes mellitus with other skin ulcer; E11.69 Type 2 diabetes mellitus with other specified complication; M86.172 Other acute osteomyelitis, left ankle and foot; M86.672 Other chronic osteomyelitis, left ankle and foot; L97.823 Non-pressure chronic ulcer of other part of left lower leg with necrosis of muscle; L97.426 Non-pressure chronic ulcer of left heel and midfoot with bone involvement without evidence of necrosis; I10 Essential (primary) hypertension; G90.09 Other idiopathic peripheral autonomic neuropathy; G47.39 Other sleep apnea; F32.9 Major depressive disorder, single episode, unspecified; E66.01 Morbid (severe) obesity due to excess calories | CPT/HCPCS: 97605; 99213; G0277 ==

== ENCOUNTER → 2022-11-07 | Outpatient (CLI) | payer BC | LOC: WCC 14:14 | PROVIDERS: ATTEND Podiatrist Foot & Ankle Surgery | DX: E11.621 Type 2 diabetes mellitus with foot ulcer (principal); E11.622 Type 2 diabetes mellitus with other skin ulcer; E11.69 Type 2 diabetes mellitus with other specified complication; M86.172 Other acute osteomyelitis, left ankle and foot; M86.672 Other chronic osteomyelitis, left ankle and foot; L97.426 Non-pressure chronic ulcer of left heel and midfoot with bone involvement without evidence of necrosis; L97.823 Non-pressure chronic ulcer of other part of left lower leg with necrosis of muscle; I10 Essential (primary) hypertension; G90.09 Other idiopathic peripheral autonomic neuropathy; G47.39 Other sleep apnea; F32.9 Major depressive disorder, single episode, unspecified; E66.01 Morbid (severe) obesity due to excess calories ==

== ENCOUNTER → 2022-11-08 | Outpatient (CLI) | payer BC | LOC: WCC 10:23 | PROVIDERS: ATTEND Podiatrist Foot & Ankle Surgery | DX: E11.621 Type 2 diabetes mellitus with foot ulcer (principal); E11.622 Type 2 diabetes mellitus with other skin ulcer; E11.69 Type 2 diabetes mellitus with other specified complication; M86.172 Other acute osteomyelitis, left ankle and foot; M86.672 Other chronic osteomyelitis, left ankle and foot; L97.426 Non-pressure chronic ulcer of left heel and midfoot with bone involvement without evidence of necrosis; L97.823 Non-pressure chronic ulcer of other part of left lower leg with necrosis of muscle; I10 Essential (primary) hypertension; G47.39 Other sleep apnea; G90.09 Other idiopathic peripheral autonomic neuropathy; F32.9 Major depressive disorder, single episode, unspecified; E66.01 Morbid (severe) obesity due to excess calories ==

== ENCOUNTER → 2022-11-09 | Outpatient (CLI) | payer BC | LOC: WCC 10:47 | PROVIDERS: ATTEND Podiatrist Foot & Ankle Surgery | DX: E11.621 Type 2 diabetes mellitus with foot ulcer (principal); E11.622 Type 2 diabetes mellitus with other skin ulcer; E11.69 Type 2 diabetes mellitus with other specified complication; M86.172 Other acute osteomyelitis, left ankle and foot; M86.672 Other chronic osteomyelitis, left ankle and foot; L97.426 Non-pressure chronic ulcer of left heel and midfoot with bone involvement without evidence of necrosis; L97.823 Non-pressure chronic ulcer of other part of left lower leg with necrosis of muscle; I10 Essential (primary) hypertension; G47.39 Other sleep apnea; G90.09 Other idiopathic peripheral autonomic neuropathy; F32.9 Major depressive disorder, single episode, unspecified; E66.01 Morbid (severe) obesity due to excess calories ==

== ENCOUNTER → 2022-11-10 | Outpatient (CLI) | payer BC | LOC: WCC 14:25 | PROVIDERS: ATTEND Podiatrist Foot & Ankle Surgery | DX: E11.621 Type 2 diabetes mellitus with foot ulcer (principal); E11.622 Type 2 diabetes mellitus with other skin ulcer; E11.69 Type 2 diabetes mellitus with other specified complication; M86.172 Other acute osteomyelitis, left ankle and foot; M86.672 Other chronic osteomyelitis, left ankle and foot; L97.426 Non-pressure chronic ulcer of left heel and midfoot with bone involvement without evidence of necrosis; L97.823 Non-pressure chronic ulcer of other part of left lower leg with necrosis of muscle; I10 Essential (primary) hypertension; G47.39 Other sleep apnea; G90.09 Other idiopathic peripheral autonomic neuropathy; F32.9 Major depressive disorder, single episode, unspecified; E66.01 Morbid (severe) obesity due to excess calories ==

== ENCOUNTER → 2022-11-11 | Outpatient (CLI) | payer BC | LOC: WCC 11:48 | PROVIDERS: ATTEND Podiatrist Foot & Ankle Surgery | DX: E11.621 Type 2 diabetes mellitus with foot ulcer (principal); E11.622 Type 2 diabetes mellitus with other skin ulcer; E11.69 Type 2 diabetes mellitus with other specified complication; M86.172 Other acute osteomyelitis, left ankle and foot; M86.672 Other chronic osteomyelitis, left ankle and foot; L97.426 Non-pressure chronic ulcer of left heel and midfoot with bone involvement without evidence of necrosis; L97.823 Non-pressure chronic ulcer of other part of left lower leg with necrosis of muscle; I10 Essential (primary) hypertension; G47.39 Other sleep apnea; G90.09 Other idiopathic peripheral autonomic neuropathy; F32.9 Major depressive disorder, single episode, unspecified; E66.01 Morbid (severe) obesity due to excess calories | CPT/HCPCS: 97605; 99213; G0277 ==

== ENCOUNTER → 2022-11-14 | Outpatient (CLI) | payer BC | LOC: WCC 15:45 | PROVIDERS: ATTEND Podiatrist Foot & Ankle Surgery | DX: E11.621 Type 2 diabetes mellitus with foot ulcer (principal); E11.622 Type 2 diabetes mellitus with other skin ulcer; E11.69 Type 2 diabetes mellitus with other specified complication; M86.172 Other acute osteomyelitis, left ankle and foot; M86.672 Other chronic osteomyelitis, left ankle and foot; L97.823 Non-pressure chronic ulcer of other part of left lower leg with necrosis of muscle; L97.426 Non-pressure chronic ulcer of left heel and midfoot with bone involvement without evidence of necrosis; I10 Essential (primary) hypertension; G47.39 Other sleep apnea; G90.09 Other idiopathic peripheral autonomic neuropathy; F32.9 Major depressive disorder, single episode, unspecified; E66.01 Morbid (severe) obesity due to excess calories | CPT/HCPCS: 99213; G0277 ==

== ENCOUNTER → 2022-11-15 | Outpatient (CLI) | payer BC | LOC: WCC 12:50 | PROVIDERS: ATTEND Podiatrist Foot & Ankle Surgery | DX: E11.621 Type 2 diabetes mellitus with foot ulcer (principal); E11.622 Type 2 diabetes mellitus with other skin ulcer; E11.69 Type 2 diabetes mellitus with other specified complication; M86.172 Other acute osteomyelitis, left ankle and foot; M86.672 Other chronic osteomyelitis, left ankle and foot; L97.426 Non-pressure chronic ulcer of left heel and midfoot with bone involvement without evidence of necrosis; L97.823 Non-pressure chronic ulcer of other part of left lower leg with necrosis of muscle; I10 Essential (primary) hypertension; G47.39 Other sleep apnea; G90.09 Other idiopathic peripheral autonomic neuropathy; F32.9 Major depressive disorder, single episode, unspecified; E66.01 Morbid (severe) obesity due to excess calories | CPT/HCPCS: 99213; G0277 ==

== ENCOUNTER → 2022-11-17 | Outpatient (CLI) | payer BC | LOC: WCC 12:00 | PROVIDERS: ATTEND Podiatrist Foot & Ankle Surgery | DX: E11.621 Type 2 diabetes mellitus with foot ulcer (principal); E11.622 Type 2 diabetes mellitus with other skin ulcer; E11.69 Type 2 diabetes mellitus with other specified complication; M86.172 Other acute osteomyelitis, left ankle and foot; M86.672 Other chronic osteomyelitis, left ankle and foot; L97.426 Non-pressure chronic ulcer of left heel and midfoot with bone involvement without evidence of necrosis; L97.823 Non-pressure chronic ulcer of other part of left lower leg with necrosis of muscle; I10 Essential (primary) hypertension; G90.09 Other idiopathic peripheral autonomic neuropathy; G47.39 Other sleep apnea; F32.9 Major depressive disorder, single episode, unspecified; E66.01 Morbid (severe) obesity due to excess calories ==

== ENCOUNTER → 2022-11-21 | Outpatient (CLI) | payer BC | LOC: WCC 15:25 | PROVIDERS: ATTEND Podiatrist Foot & Ankle Surgery | DX: E11.621 Type 2 diabetes mellitus with foot ulcer (principal); E11.622 Type 2 diabetes mellitus with other skin ulcer; E11.69 Type 2 diabetes mellitus with other specified complication; M86.172 Other acute osteomyelitis, left ankle and foot; M86.672 Other chronic osteomyelitis, left ankle and foot; L97.426 Non-pressure chronic ulcer of left heel and midfoot with bone involvement without evidence of necrosis; L97.823 Non-pressure chronic ulcer of other part of left lower leg with necrosis of muscle; I10 Essential (primary) hypertension; G47.39 Other sleep apnea; G90.09 Other idiopathic peripheral autonomic neuropathy; F32.9 Major depressive disorder, single episode, unspecified; E66.01 Morbid (severe) obesity due to excess calories | CPT/HCPCS: 36415; 82948; G0277 ==

== ENCOUNTER → 2022-11-22 | Outpatient (CLI) | payer BC | LOC: WCC 10:14 | PROVIDERS: ATTEND Podiatrist Foot & Ankle Surgery | DX: E11.621 Type 2 diabetes mellitus with foot ulcer (principal); E11.622 Type 2 diabetes mellitus with other skin ulcer; E11.69 Type 2 diabetes mellitus with other specified complication; M86.172 Other acute osteomyelitis, left ankle and foot; M86.672 Other chronic osteomyelitis, left ankle and foot; L97.426 Non-pressure chronic ulcer of left heel and midfoot with bone involvement without evidence of necrosis; L97.823 Non-pressure chronic ulcer of other part of left lower leg with necrosis of muscle; I10 Essential (primary) hypertension; G47.39 Other sleep apnea; G90.09 Other idiopathic peripheral autonomic neuropathy; F32.9 Major depressive disorder, single episode, unspecified; E66.01 Morbid (severe) obesity due to excess calories ==

== ENCOUNTER → 2022-11-23 | Outpatient (CLI) | payer BC | LOC: WCC 12:15 | PROVIDERS: ATTEND Podiatrist Foot & Ankle Surgery | DX: E11.621 Type 2 diabetes mellitus with foot ulcer (principal); E11.622 Type 2 diabetes mellitus with other skin ulcer; E11.69 Type 2 diabetes mellitus with other specified complication; M86.172 Other acute osteomyelitis, left ankle and foot; M86.672 Other chronic osteomyelitis, left ankle and foot; L97.426 Non-pressure chronic ulcer of left heel and midfoot with bone involvement without evidence of necrosis; L97.823 Non-pressure chronic ulcer of other part of left lower leg with necrosis of muscle; I10 Essential (primary) hypertension; G47.39 Other sleep apnea; G90.09 Other idiopathic peripheral autonomic neuropathy; F32.9 Major depressive disorder, single episode, unspecified; E66.01 Morbid (severe) obesity due to excess calories | CPT/HCPCS: 99213; G0277 ==

== ENCOUNTER → 2022-11-25 | Outpatient (CLI) | payer BC | LOC: WCC 12:13 | PROVIDERS: ATTEND Internal Medicine Infectious Disease | DX: E11.621 Type 2 diabetes mellitus with foot ulcer (principal); L97.426 Non-pressure chronic ulcer of left heel and midfoot with bone involvement without evidence of necrosis | CPT/HCPCS: 99213; G0277 ==

== ENCOUNTER → 2022-11-28 | Outpatient (CLI) | payer BC | LOC: WCC 13:30 | PROVIDERS: ATTEND Podiatrist Foot & Ankle Surgery | DX: E11.621 Type 2 diabetes mellitus with foot ulcer (principal); L97.426 Non-pressure chronic ulcer of left heel and midfoot with bone involvement without evidence of necrosis | CPT/HCPCS: 99213; G0277 ==

== ENCOUNTER → 2022-11-29 | Outpatient (CLI) | payer BC | LOC: WCC 11:12 | PROVIDERS: ATTEND Podiatrist Foot & Ankle Surgery | DX: E11.621 Type 2 diabetes mellitus with foot ulcer (principal); E11.622 Type 2 diabetes mellitus with other skin ulcer; E11.69 Type 2 diabetes mellitus with other specified complication; M86.172 Other acute osteomyelitis, left ankle and foot; M86.672 Other chronic osteomyelitis, left ankle and foot; L97.426 Non-pressure chronic ulcer of left heel and midfoot with bone involvement without evidence of necrosis; L97.823 Non-pressure chronic ulcer of other part of left lower leg with necrosis of muscle; I10 Essential (primary) hypertension; G47.39 Other sleep apnea; G90.09 Other idiopathic peripheral autonomic neuropathy; F32.9 Major depressive disorder, single episode, unspecified; E66.01 Morbid (severe) obesity due to excess calories ==

== ENCOUNTER → 2022-11-30 | Outpatient (CLI) | payer BC ==
[~2022-11-30] MED LIST changes: +MINERAL OIL/PETROLAT/GLYCERI 6OZ BTL ONE; +MUPIROCIN 2% OINT 22 GM TUBE ONE; +TRYPSIN/BALSAM PERU/CASTOR OIL ONE
== END ==
LOC: WCC 14:23
PROVIDERS: ATTEND Podiatrist Foot & Ankle Surgery
DX: E11.621 Type 2 diabetes mellitus with foot ulcer (principal); L97.426 Non-pressure chronic ulcer of left heel and midfoot with bone involvement without evidence of necrosis
CPT/HCPCS: 36415; 82948; 99213; G0277

== ENCOUNTER → 2022-12-02 | Outpatient (CLI) | payer BC ==
[~2022-12-02] MED LIST changes: -MINERAL OIL/PETROLAT/GLYCERI 6OZ BTL ONE; -MUPIROCIN 2% OINT 22 GM TUBE ONE; -TRYPSIN/BALSAM PERU/CASTOR OIL ONE
== END ==
LOC: WCC 11:19
PROVIDERS: ATTEND Podiatrist Foot & Ankle Surgery
DX: E11.621 Type 2 diabetes mellitus with foot ulcer (principal); L97.426 Non-pressure chronic ulcer of left heel and midfoot with bone involvement without evidence of necrosis
CPT/HCPCS: 99213; G0277

== ENCOUNTER → 2022-12-05 | Outpatient (CLI) | payer BC | LOC: WCC 14:33 | PROVIDERS: ATTEND Podiatrist Foot & Ankle Surgery | DX: I70.244 Atherosclerosis of native arteries of left leg with ulceration of heel and midfoot (principal); L97.426 Non-pressure chronic ulcer of left heel and midfoot with bone involvement without evidence of necrosis | CPT/HCPCS: 99213; G0277 ==

== ENCOUNTER → 2022-12-06 | Outpatient (CLI) | payer BC | LOC: WCC 13:08 | PROVIDERS: ATTEND Podiatrist Foot & Ankle Surgery | DX: M86.172 Other acute osteomyelitis, left ankle and foot (principal); E11.621 Type 2 diabetes mellitus with foot ulcer; L97.426 Non-pressure chronic ulcer of left heel and midfoot with bone involvement without evidence of necrosis ==

== ENCOUNTER → 2022-12-07 | Outpatient (CLI) | payer BC | LOC: WCC 12:22 | PROVIDERS: ATTEND Podiatrist Foot & Ankle Surgery | DX: I70.244 Atherosclerosis of native arteries of left leg with ulceration of heel and midfoot (principal); M86.172 Other acute osteomyelitis, left ankle and foot; L97.426 Non-pressure chronic ulcer of left heel and midfoot with bone involvement without evidence of necrosis ==

== ENCOUNTER → 2022-12-08 | Outpatient (CLI) | payer BC | LOC: WCC 12:50 | PROVIDERS: ATTEND Podiatrist Foot & Ankle Surgery | DX: I70.244 Atherosclerosis of native arteries of left leg with ulceration of heel and midfoot (principal); M86.172 Other acute osteomyelitis, left ankle and foot; L97.426 Non-pressure chronic ulcer of left heel and midfoot with bone involvement without evidence of necrosis ==

== ENCOUNTER → 2022-12-12 | Outpatient (CLI) | payer BC | LOC: WCC 13:31 | PROVIDERS: ATTEND Podiatrist Foot & Ankle Surgery | DX: I70.244 Atherosclerosis of native arteries of left leg with ulceration of heel and midfoot (principal); M86.172 Other acute osteomyelitis, left ankle and foot; L97.426 Non-pressure chronic ulcer of left heel and midfoot with bone involvement without evidence of necrosis ==

== ENCOUNTER → 2022-12-15 | Outpatient (CLI) | payer BC | LOC: WCC 14:22 | PROVIDERS: ATTEND Podiatrist Foot & Ankle Surgery | DX: I70.244 Atherosclerosis of native arteries of left leg with ulceration of heel and midfoot (principal); M86.172 Other acute osteomyelitis, left ankle and foot; L97.426 Non-pressure chronic ulcer of left heel and midfoot with bone involvement without evidence of necrosis | CPT/HCPCS: 99213; G0277 ==

== ENCOUNTER → 2022-12-19 | Outpatient (CLI) | payer BC | LOC: WCC 09:10 | PROVIDERS: ATTEND Podiatrist Foot & Ankle Surgery | DX: I70.244 Atherosclerosis of native arteries of left leg with ulceration of heel and midfoot (principal); M86.172 Other acute osteomyelitis, left ankle and foot; L97.426 Non-pressure chronic ulcer of left heel and midfoot with bone involvement without evidence of necrosis ==

== ENCOUNTER → 2022-12-20 | Outpatient (CLI) | payer BC | LOC: WCC 13:40 | PROVIDERS: ATTEND Podiatrist Foot & Ankle Surgery | DX: E11.621 Type 2 diabetes mellitus with foot ulcer (principal); M86.172 Other acute osteomyelitis, left ankle and foot; L97.426 Non-pressure chronic ulcer of left heel and midfoot with bone involvement without evidence of necrosis ==

== ENCOUNTER → 2022-12-21 | Outpatient (CLI) | payer BC | LOC: WCC 11:22 | PROVIDERS: ATTEND Family Medicine Adult Medicine | DX: E11.621 Type 2 diabetes mellitus with foot ulcer (principal); M86.172 Other acute osteomyelitis, left ankle and foot; L97.426 Non-pressure chronic ulcer of left heel and midfoot with bone involvement without evidence of necrosis ==

== ENCOUNTER → 2022-12-22 | Outpatient (CLI) | payer BC | LOC: WCC 13:50 | PROVIDERS: ATTEND Podiatrist Foot & Ankle Surgery | DX: I70.244 Atherosclerosis of native arteries of left leg with ulceration of heel and midfoot (principal); M86.172 Other acute osteomyelitis, left ankle and foot; L97.426 Non-pressure chronic ulcer of left heel and midfoot with bone involvement without evidence of necrosis | CPT/HCPCS: 99213; G0277 ==

== ENCOUNTER → 2022-12-26 | Outpatient (CLI) | payer BC | LOC: WCC 10:50 | PROVIDERS: ATTEND Podiatrist Foot & Ankle Surgery | DX: I70.244 Atherosclerosis of native arteries of left leg with ulceration of heel and midfoot (principal); L97.426 Non-pressure chronic ulcer of left heel and midfoot with bone involvement without evidence of necrosis; M86.172 Other acute osteomyelitis, left ankle and foot ==

== ENCOUNTER → 2022-12-27 | Outpatient (CLI) | payer BC | LOC: WCC 08:42 | PROVIDERS: ATTEND Podiatrist Foot & Ankle Surgery | DX: E11.621 Type 2 diabetes mellitus with foot ulcer (principal); L97.426 Non-pressure chronic ulcer of left heel and midfoot with bone involvement without evidence of necrosis; M86.172 Other acute osteomyelitis, left ankle and foot ==

== ENCOUNTER → 2022-12-29 | Outpatient (CLI) | payer BC | LOC: WCC 13:21 | PROVIDERS: ATTEND Family Medicine Adult Medicine | DX: E11.621 Type 2 diabetes mellitus with foot ulcer (principal); M86.172 Other acute osteomyelitis, left ankle and foot; L97.426 Non-pressure chronic ulcer of left heel and midfoot with bone involvement without evidence of necrosis; I70.244 Atherosclerosis of native arteries of left leg with ulceration of heel and midfoot ==

== ENCOUNTER → 2023-01-03 | Outpatient (CLI) | payer BC ==
[~2023-01-03] MED LIST changes: +TRYPSIN/BALSAM PERU/CASTOR OIL ONE
== END ==
LOC: WCC
PROVIDERS: ATTEND Podiatrist Foot & Ankle Surgery
DX: E11.621 Type 2 diabetes mellitus with foot ulcer (principal); M86.172 Other acute osteomyelitis, left ankle and foot; L97.426 Non-pressure chronic ulcer of left heel and midfoot with bone involvement without evidence of necrosis

== ENCOUNTER → 2023-01-31 | Outpatient (CLI) | payer BC ==
[~2023-01-31] MED LIST changes: +MUPIROCIN 2% OINT 22 GM TUBE ONE; -TRYPSIN/BALSAM PERU/CASTOR OIL ONE
== END ==
LOC: WCC 07:30
PROVIDERS: ATTEND Podiatrist Foot & Ankle Surgery
DX: E11.621 Type 2 diabetes mellitus with foot ulcer (principal); L97.521 Non-pressure chronic ulcer of other part of left foot limited to breakdown of skin; L97.511 Non-pressure chronic ulcer of other part of right foot limited to breakdown of skin

== ENCOUNTER → 2023-02-21 | Outpatient (CLI) | payer BC ==
[~2023-02-21] MED LIST changes: -MUPIROCIN 2% OINT 22 GM TUBE ONE
== END ==
LOC: WCC 08:55
PROVIDERS: ATTEND Podiatrist Foot & Ankle Surgery
DX: E11.621 Type 2 diabetes mellitus with foot ulcer (principal); L97.521 Non-pressure chronic ulcer of other part of left foot limited to breakdown of skin; L97.511 Non-pressure chronic ulcer of other part of right foot limited to breakdown of skin
CPT/HCPCS: 87071; 87075; 87186; 87205

== ENCOUNTER → 2023-02-28 | Outpatient (CLI) | payer BC | LOC: WCC 08:00 | PROVIDERS: ATTEND Podiatrist Foot & Ankle Surgery | DX: E11.621 Type 2 diabetes mellitus with foot ulcer (principal); L97.521 Non-pressure chronic ulcer of other part of left foot limited to breakdown of skin; L97.511 Non-pressure chronic ulcer of other part of right foot limited to breakdown of skin ==

== ENCOUNTER → 2023-03-07 | Outpatient (CLI) | payer BC | LOC: WCC 08:00 | PROVIDERS: ATTEND Podiatrist Foot & Ankle Surgery | DX: E11.621 Type 2 diabetes mellitus with foot ulcer (principal); L97.521 Non-pressure chronic ulcer of other part of left foot limited to breakdown of skin; L97.511 Non-pressure chronic ulcer of other part of right foot limited to breakdown of skin ==